=== PATIENT | male | born 1940 | race American Indian/Alaskan Native ===

== ENCOUNTER 2023-12-22 09:57 | Outpatient (CLI) | payer OTHER, MEDICAID ==
[~2023-12-22 09:57] MED LIST: FLUT1BLS4 INH; PANT-47 PO; PROP60TA19 PO
== END 2023-12-22 23:59 | disposition home or self-care (01) ==
LOC: RAD 09:57
PROVIDERS: ATTEND Family Medicine
DX: J44.9 Chronic obstructive pulmonary disease, unspecified (principal); J47.9 Bronchiectasis, uncomplicated; M84.48XA Pathological fracture, other site, initial encounter for fracture; J98.11 Atelectasis; J98.4 Other disorders of lung; I25.10 Atherosclerotic heart disease of native coronary artery without angina pectoris; Z87.891 Personal history of nicotine dependence
CPT/HCPCS: 71046; 71250

== ENCOUNTER 2024-05-30 14:19 | Emergency (ER) | payer MEDICARE, MEDICAID ==
[~2024-05-30] VITALS: Ht 175.3 cm; Wt 45.5 kg
[~2024-05-30 14:19] MED LIST changes: -PANT-47 PO; +PROP10TA10 PO; -PROP60TA19 PO
[2024-05-30 14:43] VITALS: BP 112/75; PULSE 90; RESP 18; TEMP 99.1; O2SAT 97
== END 2024-05-30 20:07 | disposition left against medical advice (07) ==
LOC: ER 14:20
DX: R30.9 Painful micturition, unspecified (principal); R35.0 Frequency of micturition; Z53.21 Procedure and treatment not carried out due to patient leaving prior to being seen by health care provider
CPT/HCPCS: A6590

== ENCOUNTER 2025-02-18 18:37 | Emergency (ER) | payer MEDICARE, MEDICAID ==
[~2025-02-18] VITALS: Ht 177.8 cm; Wt 77.2 kg
[~2025-02-18 18:37] MED LIST changes: -FLUT1BLS4 INH; +FORM20VI IH; -PROP10TA10 PO
--- NOTE | 2025-02-18 19:14 | Physician Documentation ---
History of Present Illness ~ Chief Complaint: Catheter Problem Stated Complaint: CATHETER ISSUES Time Seen by MD: 19:01 Primary Medical Doctor: [facility] ER Dr.Pena DANIEL [age] year male brought to the emergency department via EMS for Banegas catheter evaluation. Patient is discharged from inpatient yesterday status post admission for sepsis and obstructive uropathy. Noted to have distended bladder and non draining Banegas. Medication Reconciliation Allergies: Coded Allergies: No Known Allergies (Unverified , 05/30/24) Scheduled Formoterol Fumarate (Perforomist), 15 MCG IH BID, (Reported) Discontinued Medications Fluticasone/Umeclidin/Vilanter (Trelegy Ellipta 100-62.5-25), 1 PUFFS INH DAILY Discontinued Reason: patient no longer taking Propranolol Hcl* (Inderal*), 1 TAB PO BID, (Reported) Discontinued Reason: patient no longer taking Past Medical History Past Medical History: COPD Past Surgical History: orthopedic surgeries Patient History: Patient reports no known family medical history. Alcohol Use: None Drug Use: none Lives with: Spouse Lives In: Home Occupation: retired Review of Systems All Other Systems at this time: Reviewed and Negative Genitalia Nonfunctioning Banegas catheter Physical Exam Vital Signs: RN Vital Signs have been reviewed: Yes, Temperature: 97.2, Source: Temporal, Heart Rate: 104, Respiratory Rate: 14, BP: 142/83, Pulse Oximetry: 96, Weight: 77.200 Oxygen Flow Rate: 0 General Appearance: alert, WD/WN, no apparent distress EENT: PERRL/EOMI Respiratory: no respiratory distress Chest: no accessory muscle use Cardiolovascular: normal peripheral pulses Gastrointestinal: non-tender Rectal: deferred Penile Discharge: none Glans: normal inspection Foreskin: normal inspection Shaft: normal inspection Scrotum: normal inspection Epididymis: normal inspection Testicle: normal inspection Back: normal inspection, no CVA tenderness Extremities: normal range of motion Lymphatic: no adenopathy Neurologic Baseline Psychiatric: normal mood/affect Progress Results/Orders Results/Orders Vital Signs 02/18/25 02/18/25 18:55 20:02 Temp 97.2 98.9 Pulse 104 92 Resp 14 16 B/P (MAP) 142/83 132/79 (96) Pulse Ox 96 97 O2 Flow Rate 0 Medical Decision Making Additional information obtaine: old records Findings [age] year male discharged from inpatient yesterday with Banegas catheter. Noted by staff that the catheter was not patent and sent to the emergency department for evaluation. Catheter unable to be flushed so it was replaced without difficulty. Bladder scan showed 89 male who is prior to catheter placement. Patient resting comfortably awaiting transport back to facility. Urinary Diff Dx:Considerations: Include: Urolithiasis, Urinary Obstruction, Urinary retention Genital Diff Dx:Considerations: Include: Balanitis, Epididymitis, Foreign body, Facture penis, Prostatitis, UTI Departure Disposition: 04 [facility] Impression: Primary Impression: Urinary catheter (Banegas) change required Condition: Improved Discharge Instructions: Indwelling Urinary Catheter Care, Adult Referrals: NO PRIMARY CARE PROVIDER (PCP) Education Educated: Patient Educated regarding: diagnosis, treatment, prognosis, need for follow up Signature Scribe Signature: . Attestation: . PARKER BRIONES PAC Feb 18, 2025 19:14
[2025-02-18 20:49] VITALS: BP 133/79; PULSE 93; RESP 16; TEMP 98.6; O2SAT 96
== END 2025-02-18 20:50 ==
LOC: ER 18:37
DX: Z46.6 Encounter for fitting and adjustment of urinary device (principal); J44.9 Chronic obstructive pulmonary disease, unspecified
CPT/HCPCS: 51702; 51798; 99285; A4314; 99284